=== PATIENT | male | born 1975 | race Caucasian/White ===

== ENCOUNTER 2017-10-25 13:56 | Inpatient (IN) | payer OTHER ==
[~2017-10-25] VITALS: Ht 188 cm; Wt 85.0 kg
[~2017-10-25 13:56] MED LIST: ACTICIN5% TP; CATAFLAM50 MG PO; CLINDAMYCIN HC150 MG PO; DICYCLOMINE HCL20 MG PO; HYDROXYZINE PAM50 MG PO; KEFLEX500 MG PO; MOTRIN800 MG PO; ONDANSETRON HYDR4 M1 PO; PREDNISONE20 MG PO; SINEMET 25-100M1 TAB PO; SUBOXONE 8 MG-21 TAB PO; ZITHROMAX Z PA250 MG PO
[2017-10-25 15:00] VITALS: BP 110/78
[2017-10-25 15:32] LABS: BASO % 0.4 % (0.0-1.0); EOS # 0.1 10*3/uL (0.0-0.4); EOS % 0.9 % (1.0-4.0); HEMATOCRIT 40.2 % (42.0-52.0); HEMOGLOBIN 13.7 g/dl (14.0-18.0); LYMPH # 2.1 10*3/uL (1.3-4.4); LYMPH % 26.4 % (27.0-41.0); MEAN CELL VOLUME 89.1 fl (80.0-94.0); MEAN CORPUSCULAR HGB 30.4 pg (27.0-31.0); MEAN CORPUSCULAR HGB CONC 34.1 g/dl (33.0-37.0); MEAN PLATELET VOLUME 11.8 fl (9.6-12.3); MONO # 0.5 10*3/uL (0.1-1.0); MONO % 6.8 % (3.0-9.0); NEUT # 5.2 10*3/uL (2.3-7.9); NEUT % 65.2 % (47.0-73.0); PLATELET COUNT AUTOMATED 153 10*3/uL (130-400); RED BLOOD COUNT 4.51 10*6/uL (4.50-5.90); RED CELL DISTRI WIDTH 13.2 % (0-14.5); WHITE BLOOD COUNT 7.9 10*3/uL (4.8-10.8)
[2017-10-25 15:47] LABS: ALBUMIN 4.1 gm/dl (3.1-4.5); ALKALINE PHOSPHATASE 58 U/L (45-117); BUN 12 mg/dl (7-24); CHLORIDE 105 mmol/L (98-107); CREATININE 1.07 mg/dL (0.70-1.30); POTASSIUM 4.3 mmol/L (3.5-5.1); SGOT/AST 7 IU/L (3-35); SGPT/ALT 17 U/L (12-78); SODIUM 139 mmol/L (136-145); TOTAL PROTEIN 7.9 gm/dL (6.4-8.2)
[2017-10-25 15:48] LABS: ETHYL ALCOHOL < 3.0 mg/dl (<3)
[2017-10-25 16:00] VITALS: BP 110/78; BP 139/106
[2017-10-25 17:03] LABS: BILIRUBIN NEGATIVE (NEGATIVE); BLOOD 2+ (NEGATIVE); CLARITY CLEAR (CLEAR); COLOR YELLOW (YELLOW); GLUCOSE NEGATIVE (NEGATIVE); KETONE NEGATIVE (NEGATIVE); LEUKO ESTERASE NEGATIVE (NEGATIVE); NITRITE NEGATIVE (NEGATIVE); PH 5.5 (5.0-9.0); UROBILINOGEN 0.2 E.U./dl (0.2-1.0)
[2017-10-25 17:11] LABS: BACTERIA TRACE; WBC 0-2 wbc/hpf (0-5)
[2017-10-25 17:12] LABS: EPITHELIAL CELLS 0-2
[2017-10-25 17:18] LABS: URINE AMPHETAMINES < 1000 (1000ng/ml); URINE BARBITURATES < 200 (200ng/ml); URINE BENZODIAZEPINES < 200 (200ng/ml); URINE CANNABINOIDS (THC) < 50 (50ng/ml); URINE COCAINE > 300 (300ng/ml); URINE METHADONE < 300 (300ng/ml); URINE OPIATES > 300 (300ng/ml)
[2017-10-25 17:20] LABS: URINE PHENCYCLIDINE < 25 (25ng/ml)
[2017-10-25 20:00] VITALS: BP 132/80
[2017-10-26] VITALS: BP 132/75
[2017-10-26 08:00] VITALS: BP 110/74
[2017-10-26 12:00] VITALS: BP 105/58
[2017-10-26 16:00] VITALS: BP 102/61
[2017-10-26 20:00] VITALS: BP 106/61
[2017-10-27] VITALS: BP 105/72
[2017-10-27 08:00] VITALS: BP 104/60
[2017-10-27 16:00] VITALS: BP 105/65
[2017-10-27 20:00] VITALS: BP 115/68
[2017-10-28] VITALS: BP 128/63
[2017-10-28 06:37] LABS: BASO % 0.6 % (0.0-1.0); EOS # 0.1 10*3/uL (0.0-0.4); EOS % 1.9 % (1.0-4.0); HEMATOCRIT 37.9 % (42.0-52.0); HEMOGLOBIN 12.6 g/dl (14.0-18.0); LYMPH % 40.7 % (27.0-41.0); MEAN CELL VOLUME 91.5 fl (80.0-94.0); MEAN CORPUSCULAR HGB 30.4 pg (27.0-31.0); MEAN CORPUSCULAR HGB CONC 33.2 g/dl (33.0-37.0); MONO # 0.5 10*3/uL (0.1-1.0); MONO % 9.6 % (3.0-9.0); NEUT # 2.3 10*3/uL (2.3-7.9); PLATELET COUNT AUTOMATED 118 10*3/uL (130-400); RED BLOOD COUNT 4.14 10*6/uL (4.50-5.90); RED CELL DISTRI WIDTH 13.3 % (0-14.5); WHITE BLOOD COUNT 4.8 10*3/uL (4.8-10.8)
[2017-10-28 06:39] LABS: CREATININE 1.01 mg/dL (0.70-1.30)
[2017-10-28 08:00] VITALS: BP 120/73; BP 130/70
[2017-10-28] MEDS ORDERED: ATARAX,VISTARIL50 MG PO (12:06)
[2017-10-28] MEDS ORDERED: METHOCARBAMOL750 M1 PO (12:06)
== END 2017-10-28 12:52 | disposition home or self-care (01) | DRG 897 ==
LOC: 5E 13:56
PROVIDERS: Internal Medicine
DX: F11.23 Opioid dependence with withdrawal (principal); D64.9 Anemia, unspecified; F12.10 Cannabis abuse, uncomplicated; F14.10 Cocaine abuse, uncomplicated; F15.10 Other stimulant abuse, uncomplicated; D72.818 Other decreased white blood cell count; D72.810 Lymphocytopenia; Z86.19 Personal history of other infectious and parasitic diseases; Z81.1 Family history of alcohol abuse and dependence; Z72.89 Other problems related to lifestyle; Z72.0 Tobacco use; Z82.49 Family history of ischemic heart disease and other diseases of the circulatory system; Z82.61 Family history of arthritis; Z82.3 Family history of stroke; R10.31 Right lower quadrant pain

== ENCOUNTER 2018-11-04 23:41 | Emergency (ER) | payer OTHER ==
[~2018-11-04] VITALS: Ht 177.8 cm; Wt 81.6 kg
--- NOTE | ~2018-11-04 | EKG ---
[place], [place] ELECTROCARDIOGRAM REPORT NAME: ROE MARQUEZ UNIT #: [id number] ROOM: DOCTOR: EPIPHANY DRAFT REPORT BIRTHDATE: [birth year] [facility] Test Date: 2018-11-04 Test Time: 23:45:36 Pat Name: ROE MARQUEZ Department: Room: Gender: M Food Demonstrator: : 1975 Requested By: SCOTT SNYDER Order Number: [id number] Reading MD: Aidan Horn MD Measurements Intervals [place] Rate: 90 P: 63 IL: 150 QRS: 28 QRSD: 108 T: 41 QT: 371 QTc: 454 Interpretive Statements Sinus rhythm RSR' in V1 or V2, right VCD or RVH ST elev, probable normal early repol pattern Electronically Signed On 11-06-2018 7:11:03 PST by Aidan Horn MD CM:EKGRPT:ELECTROCARDIOGRAM REPORT [id number] SCOTT GATICA DRAFT REPORT SCOTT SNYDER DO
[~2018-11-04 23:41] MED LIST changes: +ATARAX,VISTARIL50 MG PO; +METHOCARBAMOL750 M1 PO
[2018-11-05 00:12] LABS: BASO % 0.4 % (0.0-1.0); EOS # 0.1 10*3/uL (0.0-0.4); EOS % 1.2 % (1.0-4.0); HEMATOCRIT 39.9 % (42.0-52.0); HEMOGLOBIN 13.7 g/dl (14.0-18.0); LYMPH # 0.9 10*3/uL (1.3-4.4); MEAN CELL VOLUME 88.9 fl (80.0-94.0); MEAN CORPUSCULAR HGB 30.5 pg (27.0-31.0); MEAN CORPUSCULAR HGB CONC 34.3 g/dl (33.0-37.0); MEAN PLATELET VOLUME 12.3 fl (9.6-12.3); MONO # 0.8 10*3/uL (0.1-1.0); MONO % 10.6 % (3.0-9.0); NEUT # 5.9 10*3/uL (2.3-7.9); NEUT % 76.4 % (47.0-73.0); PLATELET COUNT AUTOMATED 148 10*3/uL (130-400); RED BLOOD COUNT 4.49 10*6/uL (4.50-5.90); RED CELL DISTRI WIDTH 13.7 % (0-14.5); WHITE BLOOD COUNT 7.7 10*3/uL (4.8-10.8)
[2018-11-05 00:22] LABS: INTERNATIONAL NORM RATIO 0.9 (2.0-3.5)
[2018-11-05 00:27] LABS: ALKALINE PHOSPHATASE 71 U/L (45-117); BUN 26 mg/dl (7-24); CHLORIDE 106 mmol/L (98-107); CREATININE 1.32 mg/dL (0.70-1.30); LIPASE 32 U/L (73-393); POTASSIUM 3.8 mmol/L (3.5-5.1); SGOT/AST 45 IU/L (3-35); SGPT/ALT 28 U/L (12-78); SODIUM 138 mmol/L (136-145); TOTAL PROTEIN 8.2 gm/dL (6.4-8.2)
[2018-11-05 00:31] LABS: TROPONIN I < 0.015 ng/ml (<0.045)
[2018-11-05 00:55] LABS: BILIRUBIN NEGATIVE (NEGATIVE); BLOOD 3+ (NEGATIVE); CLARITY CLEAR (CLEAR); COLOR YELLOW (YELLOW); GLUCOSE NEGATIVE (NEGATIVE); KETONE 1+ (NEGATIVE); LEUKO ESTERASE NEGATIVE (NEGATIVE); NITRITE NEGATIVE (NEGATIVE); PH 5.5 (5.0-9.0); UROBILINOGEN 0.2 E.U./dl (0.2-1.0)
[2018-11-05 01:06] LABS: URINE AMPHETAMINES > 1000 (1000ng/ml); URINE BARBITURATES < 200 (200ng/ml); URINE BENZODIAZEPINES < 200 (200ng/ml); URINE CANNABINOIDS (THC) < 50 (50ng/ml); URINE COCAINE < 300 (300ng/ml); URINE METHADONE < 300 (300ng/ml); URINE OPIATES < 300 (300ng/ml)
[2018-11-05 01:09] LABS: RBC 21-30 rbc/hpf (0-2)
[2018-11-05 01:10] LABS: URINE PHENCYCLIDINE < 25 (25ng/ml)
== END 2018-11-05 07:00 | disposition home or self-care (01) ==
LOC: ED 23:41
PROVIDERS: Emergency Medicine
DX: R10.31 Right lower quadrant pain (principal); M54.2 Cervicalgia; R68.2 Dry mouth, unspecified; F14.10 Cocaine abuse, uncomplicated; F12.10 Cannabis abuse, uncomplicated; F11.10 Opioid abuse, uncomplicated; F15.10 Other stimulant abuse, uncomplicated; F17.200 Nicotine dependence, unspecified, uncomplicated

== ENCOUNTER 2019-02-08 07:49 | Inpatient (IN) | payer OTHER ==
[~2019-02-08] VITALS: Ht 187.9 cm; Wt 77.3 kg
--- NOTE | ~2019-02-08 | EKG ---
[place], [place] ELECTROCARDIOGRAM REPORT NAME: ROE MARQUEZ UNIT #: [id number] ROOM: 416 DOCTOR: NIYA DRAFT REPORT BIRTHDATE: [birth year] [facility] Test Date: 2019-02-08 Test Time: 08:30:58 Pat Name: ROE MARQUEZ Department: Room: 416 Gender: M Nephrologist: Erica Garvey : 1975 Requested By: ANTONIO SIMPSON Order Number: [id number] Reading MD: Jeffery Lazo MD Measurements Intervals [place] Rate: 51 P: 63 LA: 161 QRS: 37 QRSD: 110 T: 40 QT: 446 QTc: 411 Interpretive Statements Sinus rhythm RSR' in V1 or V2, right VCD or RVH Left ventricular hypertrophy Compared to ECG 11/04/2018 23:45:36 Left ventricular hypertrophy now present ST (T wave) deviation no longer present Electronically Signed On 02-09-2019 10:12:55 PDT by Jeffery Lazo MD CM:EKGRPT:ELECTROCARDIOGRAM REPORT [id number] ANTONIO GATICA DRAFT REPORT ANTONIO SIMPSON DO
--- NOTE | ~2019-02-08 | EKG ---
[place], [place] ELECTROCARDIOGRAM REPORT NAME: ROE MARQUEZ UNIT #: [id number] ROOM: 416 DOCTOR: NIYA DRAFT REPORT BIRTHDATE: [birth year] [facility] Test Date: 2019-02-08 Test Time: 19:02:56 Pat Name: ROE MARQUEZ Department: Room: 416 Gender: M Glass Maker: Leslie Medina : 1975 Requested By: DUSTIN FUENTES Order Number: [id number] Reading MD: Jeffery Lazo MD Measurements Intervals [place] Rate: 63 P: 27 MN: 151 QRS: 31 QRSD: 100 T: 18 QT: 416 QTc: 426 Interpretive Statements Sinus rhythm RSR' in V1 or V2, right VCD or RVH Left ventricular hypertrophy ST elevation, consider anterolateral injury Baseline wander in lead(s) V2 Compared to ECG 11/04/2018 23:45:36 Left ventricular hypertrophy now present Myocardial infarct finding now present ST (T wave) deviation still present Electronically Signed On 02-09-2019 10:13:36 PDT by Jeffery Lazo MD CM:EKGRPT:ELECTROCARDIOGRAM REPORT [id number] DUSTIN GATICA DRAFT REPORT DUSTIN FUENTES DO
[2019-02-08 08:00] VITALS: BP 149/98
[2019-02-08 08:43] LABS: BASO % 0.4 % (0.0-1.0); EOS # 0.1 10*3/uL (0.0-0.4); EOS % 1.8 % (1.0-4.0); HEMATOCRIT 37.8 % (42.0-52.0); HEMOGLOBIN 12.8 g/dl (14.0-18.0); LYMPH # 1.4 10*3/uL (1.3-4.4); LYMPH % 26.2 % (27.0-41.0); MEAN CELL VOLUME 90.6 fl (80.0-94.0); MEAN CORPUSCULAR HGB 30.7 pg (27.0-31.0); MEAN CORPUSCULAR HGB CONC 33.9 g/dl (33.0-37.0); MEAN PLATELET VOLUME 11.9 fl (9.6-12.3); MONO # 0.5 10*3/uL (0.1-1.0); MONO % 9.6 % (3.0-9.0); NEUT # 3.4 10*3/uL (2.3-7.9); NEUT % 61.6 % (47.0-73.0); PLATELET COUNT AUTOMATED 130 10*3/uL (130-400); RED BLOOD COUNT 4.17 10*6/uL (4.50-5.90); RED CELL DISTRI WIDTH 13.3 % (0-14.5); WHITE BLOOD COUNT 5.4 10*3/uL (4.8-10.8)
[2019-02-08 08:54] LABS: ACT PARTIAL THROMBO TIME 23.7 SECONDS (20.8-31.5)
[2019-02-08 08:59] LABS: ALBUMIN 3.7 gm/dl (3.1-4.5); ALKALINE PHOSPHATASE 53 U/L (45-117); BUN 15 mg/dl (7-24); CHLORIDE 106 mmol/L (98-107); CREATININE 0.94 mg/dL (0.70-1.30); LIPASE 38 U/L (73-393); POTASSIUM 3.8 mmol/L (3.5-5.1); SGOT/AST 12 IU/L (3-35); SGPT/ALT 23 U/L (12-78); SODIUM 139 mmol/L (136-145); TOTAL PROTEIN 7.3 gm/dL (6.4-8.2)
[2019-02-08 09:00] LABS: ETHYL ALCOHOL < 3.0 mg/dl (<3); TROPONIN I < 0.015 ng/ml (<0.045)
[2019-02-08 09:01] VITALS: BP 144/82
--- NOTE | 2019-02-08 09:03 | NUR ---
PT RETURN FROM X-RAY AND STATES HE CANNOT VOID AT THIS TIME. BLU KERNS RN.
--- NOTE | 2019-02-08 10:37 | NUR ---
PT SLEEPING AROUSES EASILY. MOANING IN PAIN, WHEN ASKED WHAT WAS WRONG HE STATES IM FUING CRAMPING THATS WHAT. PT IS UNABLE TO VOID AT THIS TIME. BLU KERNS RN.
[2019-02-08 10:38] VITALS: BP 136/70
--- NOTE | 2019-02-08 13:41 | NUR ---
PT SLEEPING AT THIS TIME RESP EASY AND REGULAR. CART IN LOW POSITION AND SIDE RAILS UP X 2 CALL LIGHT IN REACH. BLU KERNS RN.
[2019-02-08 14:46] VITALS: BP 117/68
--- NOTE | 2019-02-08 14:46 | NUR ---
PT STATES AT THIS TIME HE STILL CANNOT VOID. PT WAS ENCOURAGED TO VOID BLU KERNS RN.
--- NOTE | 2019-02-08 16:00 | NUR ---
PT SLEEPING AROUSES WITH STIMULATION AND THE PATIENT IS ENCOURAGED TO GIVE A URINE SPEC. PT IS UPSET AND STATES CLOSETHE FUING DOOR AND I'LL GIVE YOU A URINE. I EXPLAINED TO THE PATIENT HE DID NOT HAVE TO USE THAT KIND OF LANGUAGE THE PATIENT AGAIN TOLD ME TO CLOSE THE DAMN DOOR. BLU KERNS RN.
[2019-02-08 17:14] LABS: BILIRUBIN NEGATIVE (NEGATIVE); BLOOD 3+ (NEGATIVE); CLARITY CLEAR (CLEAR); COLOR YELLOW (YELLOW); GLUCOSE NEGATIVE (NEGATIVE); KETONE TRACE (NEGATIVE); LEUKO ESTERASE NEGATIVE (NEGATIVE); NITRITE NEGATIVE (NEGATIVE); UROBILINOGEN 0.2 E.U./dl (0.2-1.0)
[2019-02-08 17:23] LABS: URINE AMPHETAMINES > 1000 (1000ng/ml); URINE BARBITURATES < 200 (200ng/ml); URINE BENZODIAZEPINES < 200 (200ng/ml); URINE CANNABINOIDS (THC) < 50 (50ng/ml); URINE COCAINE < 300 (300ng/ml); URINE METHADONE < 300 (300ng/ml); URINE OPIATES < 300 (300ng/ml)
[2019-02-08 17:24] LABS: URINE PHENCYCLIDINE < 25 (25ng/ml)
[2019-02-08 17:34] LABS: BACTERIA TRACE; RBC TNTC rbc/hpf (0-2); WBC 0-2 wbc/hpf (0-5)
[2019-02-08 20:00] VITALS: BP 93/60
--- NOTE | 2019-02-08 20:25 | NUR ---
A 43, admitted to , under the services of GILBERTO Zaldivar DO with a diagnosis of CLOSED HEAD INJURY, SYNCOPE, AMPHETAMINE ABUSE. Chief complaint is FALL. Patient arrived via ambulance from ER. Monitor applied. Initial assessment completed. Vital signs taken and recorded. GILBERTO ZALDIVAR DO notified of admission to the unit. Orders received. See assessment for past medical history, medications and allergies. Patient and/or family oriented to unit. [facility]. Clothing/patient valuable form completed. EMILEE MORELOS
[2019-02-08] MEDS ORDERED: SUBOXONE 8 MG-1 EACH SL (22:26)
--- NOTE | 2019-02-08 23:01 | NUR ---
ASSUMED CARE OF PATIENT AT THIS TIME. PATIENT ASLEEP IN BED, EASILY AROUSABLE. SHIFT ASSESSMENT COMPLETE. PATIENT IS C/O MILD DISCOMFORT TO R POSTERIOR HEAD, BUT DENIES NEED FOR PRN TYLENOL. WILL MONITOR. CALL LIGHT LEFT IN REACH.
--- NOTE | 2019-02-08 23:10 | NUR ---
DR. MORRIS NOTIFIED THAT PT STATES HE TAKES [facility] HOME MED AND MED REC IS RECONCILIATED.
[2019-02-09] VITALS: BP 120/86
--- NOTE | 2019-02-09 02:21 | NUR ---
PATIENT ASLEEP IN BED, EASILY AROUSABLE. DENIES ANY NEW/WORSENING SYMPTOMS. WILL MONITOR. CALL LIGHT IN REACH. BED ALARM INTACT.
--- NOTE | 2019-02-09 07:25 | NUR ---
REPORT OBTAINED FROM MARINO-TANVIR. PATIENT IS RESTING IN BED, EYES CLOSED. NO DISTRESS NOTED, RESP ARE ERND ON ROOM AIR. BED IS LOCKED IN LOWEST POSITION, ALARM MAINTAINED. CALL LIGHT LEFT WITHIN REACH.
[2019-02-09 08:00] VITALS: BP 114/60
--- NOTE | 2019-02-09 08:00 | NUR ---
PATIENT HAS STEADY GAIT, VOICED NO COMPLAINTS, ASYMPTOMATIC. NOT CONSIDERED FALL RISK. BED ALARM D/C.
--- NOTE | 2019-02-09 09:00 | NUR ---
Auto Tune Up Mechanic in to talk to patient. Patient states lives at home with alone. There are few steps in the home. Physician: none Pharmacy: none Home health services: none Patient's level of ADLs: INDEPENDENT Patient has working utilities: all working DME: none Follow-up physician's appointment after d/c: will be made by hospitalist nurse director with doctor of patient's choice upon discharge Does patient want to access PORTAL?: non Discharge plan discussesd with patient, patient lives at home, states he will be going home when able and denies any home needs. JOSSELYN ALEXANDER
--- NOTE | 2019-02-09 10:12 | NUR ---
PATIENT MEDICATED WITH ZOFRAN AND TYLENOL FOR C/O BEING "LITTLE NAUSEATED, HEAD IS SORE". WILL MONITOR
--- NOTE | 2019-02-09 11:13 | NUR ---
PHYSICAL THERAPY PAtient reports he is 100 % (I) with all mobility and ADL's without difficulty. PAtient reports he has no PT or OT needs at this time. Will D/C PT orders as requested at this time. Thank you for this referral. Yari Souza,PT
[2019-02-09 12:00] VITALS: BP 123/77
--- NOTE | 2019-02-09 13:59 | NUR ---
NOTED PATIENT WAS OFF MONITOR, WENT TO ASSESS. NOTED THAT PATIENT HAD TOOK MONIOTR OFF AND HOSPITAL GOWN, AND LEFT. AND NURSING FUNERAL HOME DIRECTOR IMMEDIATELY NOTIFIED. STATED TO PLACE AMA.
== END 2019-02-09 13:59 | disposition left against medical advice (07) | DRG 914 ==
LOC: ED 07:49 → EDHOLD 18:22 → 4E 18:22 → EDHOLD 18:37 → 4E 18:53
PROVIDERS: Emergency Medicine; ADMIT Internal Medicine
DX: S09.90XA Unspecified injury of head, initial encounter (principal); R55 Syncope and collapse; F15.10 Other stimulant abuse, uncomplicated; R00.1 Bradycardia, unspecified; R73.9 Hyperglycemia, unspecified; E83.41 Hypermagnesemia; F17.210 Nicotine dependence, cigarettes, uncomplicated; Z86.14 Personal history of Methicillin resistant Staphylococcus aureus infection; Z82.49 Family history of ischemic heart disease and other diseases of the circulatory system; Z82.3 Family history of stroke; Z83.3 Family history of diabetes mellitus; Z81.1 Family history of alcohol abuse and dependence; Z82.61 Family history of arthritis; Z80.9 Family history of malignant neoplasm, unspecified; Z79.899 Other long term (current) drug therapy; Z53.21 Procedure and treatment not carried out due to patient leaving prior to being seen by health care provider; W18.39XA Other fall on same level, initial encounter; Y93.89 Activity, other specified; Y92.89 Other specified places as the place of occurrence of the external cause; Y99.8 Other external cause status

== ENCOUNTER 2019-11-16 10:34 | Emergency (ER) | payer SELFPAY ==
[~2019-11-16] VITALS: Ht 187.9 cm; Wt 83.9 kg
[~2019-11-16 10:34] MED LIST changes: +SUBOXONE 8 MG-1 EACH SL
[2019-11-16] MEDS ORDERED: CEPHALEXIN500 M1 PO (10:46)
== END 2019-11-16 10:48 | disposition home or self-care (01) ==
LOC: ED 10:34
DX: L03.113 Cellulitis of right upper limb (principal); L02.511 Cutaneous abscess of right hand; F17.200 Nicotine dependence, unspecified, uncomplicated; Z79.899 Other long term (current) drug therapy

== ENCOUNTER 2019-11-18 17:59 | Inpatient (IN) | payer SELFPAY ==
[~2019-11-18] VITALS: Ht 187.9 cm; Wt 75.1 kg
[~2019-11-18 17:59] MED LIST changes: +CEPHALEXIN500 M1 PO
[2019-11-18 18:16] VITALS: BP 111/78
[2019-11-18 19:52] LABS: BASO # 0.1 10*3/uL (0.0-0.1); BASO % 0.5 % (0.0-1.0); EOS # 0.1 10*3/uL (0.0-0.4); EOS % 0.5 % (1.0-4.0); HEMATOCRIT 38.2 % (42.0-52.0); HEMOGLOBIN 12.5 g/dl (14.0-18.0); LYMPH # 1.1 10*3/uL (1.3-4.4); LYMPH % 11.9 % (27.0-41.0); MEAN CELL VOLUME 93.6 fl (80.0-94.0); MEAN CORPUSCULAR HGB 30.6 pg (27.0-31.0); MEAN CORPUSCULAR HGB CONC 32.7 g/dl (33.0-37.0); MEAN PLATELET VOLUME 11.9 fl (9.6-12.3); MONO # 0.9 10*3/uL (0.1-1.0); MONO % 10.1 % (3.0-9.0); NEUT # 7.1 10*3/uL (2.3-7.9); NEUT % 76.8 % (47.0-73.0); PLATELET COUNT AUTOMATED 236 10*3/uL (130-400); RED BLOOD COUNT 4.08 10*6/uL (4.50-5.90); RED CELL DISTRI WIDTH 12.5 % (0-14.5); WHITE BLOOD COUNT 9.2 10*3/uL (4.8-10.8)
[2019-11-18 20:03] LABS: ACT PARTIAL THROMBO TIME 29.3 SECONDS (20.0-32.1); INTERNATIONAL NORM RATIO 0.9 (2.0-3.5)
--- NOTE | 2019-11-18 20:10 | NUR ---
PT PROMPTED TWICE FOR URINE SPECIMEN.URINAL PROVIDED.PT STATES "I WENT PEE BEFORE I CAME IN".
[2019-11-18 20:11] LABS: ALBUMIN 3.2 gm/dl (3.1-4.5); BUN 13 mg/dl (7-24); CHLORIDE 106 mmol/L (98-107); CREATININE 0.98 mg/dL (0.70-1.30); LIPASE 34 U/L (73-393); SGOT/AST 6 IU/L (3-35); SGPT/ALT 21 U/L (12-78); SODIUM 138 mmol/L (136-145); TOTAL PROTEIN 7.8 gm/dL (6.4-8.2)
[2019-11-18 20:12] LABS: ALKALINE PHOSPHATASE 70 U/L (45-117)
[2019-11-18 20:16] LABS: TROPONIN I < 0.015 ng/ml (<0.045)
--- NOTE | 2019-11-18 20:24 | NUR ---
WOUND CULTURE COLLECTED FROM FINGER OF RT HAND,LABELED AND SENT TO LAB.
--- NOTE | 2019-11-18 21:26 | NUR ---
URINE SPECIMEN COLLECTED,LABELED AND SENT TO LAB.
[2019-11-18 21:53] LABS: BLOOD 1+ (NEGATIVE); CLARITY SL CLOUDY (CLEAR); COLOR YELLOW (YELLOW); SPECIFIC GRAVITY 1.025 (1.005-1.030)
[2019-11-18 21:54] LABS: BILIRUBIN NEGATIVE (NEGATIVE); GLUCOSE NEGATIVE (NEGATIVE); KETONE NEGATIVE (NEGATIVE); LEUKO ESTERASE NEGATIVE (NEGATIVE); NITRITE NEGATIVE (NEGATIVE); UROBILINOGEN 0.2 E.U./dl (0.2-1.0)
[2019-11-18 21:55] LABS: EPITHELIAL CELLS 0-2; MUCOUS 1+
--- NOTE | 2019-11-18 22:37 | NUR ---
INFUSION OF ZOSYN INITIATED PER EMAR.
--- NOTE | 2019-11-18 22:41 | NUR ---
PHOTO TAKEN OF PT 3RD DIGIT OF RIGHT HAND CELLULITIS.
[2019-11-18 22:44] VITALS: BP 125/85
--- NOTE | 2019-11-18 22:44 | NUR ---
PT REQUEST TYLENOL FOR PAIN.
--- NOTE | 2019-11-18 23:08 | NUR ---
INFUSION OF ZOSYN COMPLETED.
--- NOTE | 2019-11-18 23:08 | NUR ---
PT PROVIDED DRINK OF GINGERALE AND BOXED [employer] LUNCH.
--- NOTE | 2019-11-18 23:13 | NUR ---
INFUSION OF VANCOMYCIN INITIATED.
[2019-11-19] VITALS: BP 129/83
--- NOTE | 2019-11-19 00:08 | NUR ---
TETANUS ADMINISTERED IN RADHA PER EMAR.
--- NOTE | 2019-11-19 00:29 | NUR ---
Time: 24 A 44 year old male admitted to under services of AVA CLARK DO. Pt. arrived via wheel chair from ER. Chief complaint: insect bite. AMA CAPUTO
[2019-11-19 00:52] VITALS: BP 133/91
[2019-11-19 06:05] LABS: BASO # 0.1 10*3/uL (0.0-0.1); EOS # 0.1 10*3/uL (0.0-0.4); EOS % 1.4 % (1.0-4.0); HEMATOCRIT 33.8 % (42.0-52.0); HEMOGLOBIN 11.1 g/dl (14.0-18.0); LYMPH # 1.5 10*3/uL (1.3-4.4); LYMPH % 19.7 % (27.0-41.0); MEAN CELL VOLUME 94.7 fl (80.0-94.0); MEAN CORPUSCULAR HGB 31.1 pg (27.0-31.0); MEAN CORPUSCULAR HGB CONC 32.8 g/dl (33.0-37.0); MEAN PLATELET VOLUME 12.2 fl (9.6-12.3); MONO # 0.9 10*3/uL (0.1-1.0); MONO % 11.8 % (3.0-9.0); NEUT # 4.8 10*3/uL (2.3-7.9); NEUT % 65.8 % (47.0-73.0); PLATELET COUNT AUTOMATED 215 10*3/uL (130-400); RED BLOOD COUNT 3.57 10*6/uL (4.50-5.90); RED CELL DISTRI WIDTH 12.8 % (0-14.5); WHITE BLOOD COUNT 7.4 10*3/uL (4.8-10.8)
[2019-11-19 06:22] LABS: BUN 13 mg/dl (7-24); CHLORIDE 108 mmol/L (98-107); CHOLESTEROL 112 mg/dL (<200); CREATININE 1.02 mg/dL (0.70-1.30); PHOSPHOROUS 2.7 mg/dL (2.5-4.9); POTASSIUM 3.9 mmol/L (3.5-5.1); SODIUM 139 mmol/L (136-145)
[2019-11-19 06:31] LABS: FREE T4 0.99 ng/dl (0.76-1.46); HDL CHOLESTEROL 52 mg/dl (40-60); LDL CHOLESTEROL 40 mg/dL (9-159); TRIGLYCERIDES 102 mg/dl (<150); VLDL CHOLESTEROL 20 mg/dL (6-40)
[2019-11-19 08:00] VITALS: BP 118/82
--- NOTE | 2019-11-19 08:00 | NUR ---
PT RESTING IN BED. RESP-EASY AND REGULAR. C/O RIGHT HAND PAIN, RATES PAIN 9 ON PAIN SCALE 0-10. MEDICATED WITH MORPHINE IV PER PRN ORDER, SEE EMAR. CALL LIGHT IN REACH. SEE SHIFT ASSESSMENT.
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
--- NOTE | 2019-11-19 09:00 | NUR ---
PT STATES PAIN MEDICATION HELPED SOME. CALL LIGHT IN REACH.
--- NOTE | 2019-11-19 09:39 | NUR ---
PT C/O RIGHT HAND PAIN, RATES PAIN 8 OR 9 ON PAIN SCALE 0-10. MEDICATED WITH NORCO PO PER PRN ORDER, SEE EMAR. CALL LIGHT IN REACH.
--- NOTE | 2019-11-19 10:30 | NUR ---
Mine Wirer in to talk to patient. Patient states lives at a friend's house but will be homeless soon. There are 0 steps in the home. Physician: none but would like to see resident clinic Pharmacy: [facility] Home health services: none Patient's level of ADLs: INDEPENDENT Patient has working utilities: yes DME: none Follow-up physician's appointment after d/c: will be made by the hospitalist nurse director upon discharge Does patient want to access PORTAL?: no Discharge plan discussed with patient. He is currently living with a friend but can only stay there until 11/24 then he will be homeless. He states he has no other friends or family he can stay with. Discussed homeless shelters and he is aware of the one in [facility]. Will have social services assistant speak to patient. He would like to have any medications filled here at the hospital pharmacy. He is independent in his ADLs and ambulation. JO BAXTER
--- NOTE | 2019-11-19 10:30 | NUR ---
PT RESTING IN BED, STATES PAIN MEDICATION HELPS A LITTLE. CALL LIGHT IN REACH.
--- NOTE | 2019-11-19 11:00 | NUR ---
CALLED DR. LANGE MADE AWARE OF CONSULT. NO NEW ORDERS.
--- NOTE | 2019-11-19 11:23 | NUR ---
Dr. Amor notified of wound care recommendations.
[2019-11-19 12:00] VITALS: BP 111/67
--- NOTE | 2019-11-19 12:20 | NUR ---
PRODUCT HANDLER spoke with the patient about being homeless. Patient stated that he is currently staying with a friend but the friend is moving on 11/24/2019. Patient stated that he has previously been in a [place] [facility]. Patient stated that he had questions about re-enstating his food stamps PRODUCT HANDLER explained he would have to contact [facility]. PRODUCT HANDLER provided the patient with a Homeless Fdc List and Local Food Pantry Lists. PRODUCT HANDLER also contacted [facility] to inquire about their Homeless Fdc, awaiting a return call from Mae Sood. PRODUCT HANDLER provied the patient with [facility] [employer] phone number as well. Weigh Tank Operator Sharon is aware. -DIEUDONNE Judge
--- NOTE | 2019-11-19 13:05 | NUR ---
PT RESTING IN BED. TOLERATING IV ANTIBIOTICS. C/O RIGHT HAND PAIN, RATES PAIN 8 ON PAIN SCALE. MEDICATED WITH MORPHINE IV PER PRN ORDER, SEE EMAR. CALL LIGHT IN REACH.
--- NOTE | 2019-11-19 13:37 | NUR ---
CALLED DR. MORRIS MADE AWARE URINE DRUG SCREEN WAS NEVER SENT. MADE AWARE HE HAS ALREADY RECEIVED PAIN MEDICATION. OK TO CANCEL.
--- NOTE | 2019-11-19 13:40 | NUR ---
DIEUDONNE received call back from [facility], she stated there are no beds available at this time but to have the patient call in for a screening. [employer] provided the patient with [phone]. Patient stated he would give her a call. -DIEUDONNE Judge
--- NOTE | 2019-11-19 14:58 | NUR ---
PT C/O RIGHT HAND PAIN, RATES PAIN 8 ON PAIN SCALE. MEDICATED WITH NORCO PO PER PRN ORDER, SEE EMAR. CALL LIGHT IN REACH.
--- NOTE | 2019-11-19 15:57 | NUR ---
PATIENT REPORTS MINIMAL EFFECT FROM PAIN MEDICATION GIVEM X 1 HOUR AGO RATES PAIN 6/10
[2019-11-19 16:00] VITALS: BP 111/72
[2019-11-20] VITALS (8 sets, daily range): BP systolic 117–142; BP diastolic 67–93
--- NOTE | 2019-11-20 00:22 | NUR ---
PT MEDICATED WITH NORCO FOR C/O PAIN RATED 10/10. WILL MONITOR FOR EFFECTIVENESS.
--- NOTE | 2019-11-20 01:00 | NUR ---
PT STATING THAT HE IS STILL EXPERIENCING PAIN AT THIS TIME. PRN NORCO INEFFECTIVE.
--- NOTE | 2019-11-20 01:13 | NUR ---
PT MEDICATED WITH PRN MORPHINE FOR C/O PAIN RATED A 10/10. WILL MONITOR FOR EFFECTIVENESS.
--- NOTE | 2019-11-20 01:45 | NUR ---
PT ASLEEP IN BED AT THIS TIME. PRN MORPHINE EFFECTIVE.
--- NOTE | 2019-11-20 05:16 | NUR ---
IN TO SEE PT AT THIS TIME TO ADMINISTER SCHEDULED ANTIBIOTICS. PT C/O PAIN, PRN MORPHINE ADMINISTERED PER ORDER. WILL MONITOR FOR EFFECTIVENESS.
--- NOTE | 2019-11-20 05:22 | NUR ---
PT MEDICATED WITH PRN MORPHINE FOR C/O PAIN RATED A 9/10. WILL MONITOR FOR EFFECTIVENESS.
--- NOTE | 2019-11-20 09:54 | NUR ---
Medicated with morphine iv per prn order for complaints of pain to rt hand. States pain is 10/10. Anny Mike in rounding on pt was well. Discussed plan of care. Pt states that surgeon was in and plan is for OR today.
--- NOTE | 2019-11-20 10:18 | NUR ---
Nutritional Support Services Note: Pt is NPO at this time sec. to surgery later today for I and D of finger sec. to cellulitis/insect bite. Pt states he will be homeless after 11/24/19. He states he eats ok most of the time. Ht.6'2 Wt.166#. BMI 21 normal weight. Stressed importance of eating protein and adequate kcal to promote healing. Regular diet as orderd is appropriate at this time. Will follow as needed. Gladys Bragg Rdn Ld
--- NOTE | 2019-11-20 11:00 | NUR ---
logging worker following patient for assistance with homeless shelters on discharge.
--- NOTE | 2019-11-20 14:43 | NUR ---
Medicated with norco per prn order for complaints of pain to rt hand.
--- NOTE | 2019-11-20 15:30 | NUR ---
States that medication was somewhat effective for pain.
--- NOTE | 2019-11-20 16:22 | NUR ---
Medicated with morphine iv per prn order for complaints of pain to rt hand.
--- NOTE | 2019-11-20 17:15 | NUR ---
States that pain medication was somewhat effective.
--- NOTE | 2019-11-20 21:37 | NUR ---
PATIENT C/O NAUSEA. IV ZOFRAN ADMINISTERED PRESCRIBED. WILL MONITOR FOR EFFECTIVENESS. WILL MONITOR FOR EFFECTIVENESS.
--- NOTE | 2019-11-20 21:44 | NUR ---
PATIENT REQUESTING PAIN MEDICATION FOR RIGHT HAND PAIN RATED 9/10 ON 0/10 SCALE.NORCO ADMINISTERED PRESCRIBED. WILL MONITOR FOR EFFECTIVENESS.
--- NOTE | 2019-11-20 22:37 | NUR ---
PATIENT STATES THAT ZOFRAN WAS EFFECTIVE FOR NAUSEA. WILL MONITOR.
--- NOTE | 2019-11-20 22:44 | NUR ---
PATIENT STATES THAT NORCO WAS EFFECTIVE FOR PAION, RATED 5/10 ON 0/10 SCALE AT THIS TIME. WILL MONITOR.
[2019-11-21] VITALS: BP 137/74
--- NOTE | 2019-11-21 04:33 | NUR ---
PATIENT REQUESTING PAIN MEDICATION FOR RIGHT HAND PAIN RATED 9/10 ON 0/10 SCALE. NORCO ADMINISTERED PRESCRIBED. WILL MONITOR FOR EFFECTIVENESS.
[2019-11-21 08:00] VITALS: BP 128/88
[2019-11-21 12:00] VITALS: BP 130/84
[2019-11-21 16:00] VITALS: BP 124/82
--- NOTE | 2019-11-21 19:57 | NUR ---
24 HR chart check completed.
[2019-11-21 21:25] VITALS: BP 136/86
--- NOTE | 2019-11-21 21:26 | NUR ---
PATIENT REQUESTING PAIN MEDICATION FOR RIGHT HAND PAIN RATED 9/10 ON 0/10 SCALE. NORCO ADMINISTERED PRESCRIBED. WILL MONITOR FOR EFFECTIVENESS.
--- NOTE | 2019-11-21 22:26 | NUR ---
PATIENT STATES THAT NORCO WAS A LITTLE EFECTIVE FOR PAIN, WILL MONITOR.
--- NOTE | 2019-11-21 22:57 | NUR ---
PATIENT REQUESTING PAIN MEDICATION FOR RIGHT HAND PAIN RATED 8/10 ON 0/10 SCALE. MORPHINE ADMINISTERED PRESCRIBED. WILL MONITOR FOR EFFECTIVENESS.
--- NOTE | 2019-11-21 23:57 | NUR ---
PATIENT RESTING WITH EYES CLOSED. RESPIRATIONS EASY AND UNLABORED. CALL LIGHT IN REACH. WILL MONITOR.
[2019-11-22] VITALS: BP 133/87
--- NOTE | 2019-11-22 02:00 | NUR ---
PATIENT RESTING COMFORTABLY WITH EYES CLOSED. RESPIRATIONS EASY AND UNLABORED. CALL LIGHT IN REACH. WILL MONITOR.
--- NOTE | 2019-11-22 04:00 | NUR ---
PATIENT RESTING WITH EYES CLOSED. RESPIRATIONS EASY AND UNLABORED. CALL LIGHT IN REACH. WILL MONITOR FOR EFFECTIVENESS.
--- NOTE | 2019-11-22 06:35 | NUR ---
PATIENT REQUESTING PAIN MEDICATION FOR RIGHT HAND PAIN RATED 8/10 ON 0/10 SCALE. NORCO ADMINISTERED PRESCRIBED. WILL MONITOR FOR EFFECTIVENESS.
[2019-11-22 07:20] LABS: BUN 12 mg/dl (7-24); CREATININE 0.88 mg/dL (0.70-1.30)
[2019-11-22 08:00] VITALS: BP 128/84
--- NOTE | 2019-11-22 12:47 | NUR ---
PATIENT MEDICATED WITH MORPHINE FOR COMPLAINTS OF RIGHT HAND PAIN. RATES 07/07. WILL CHECK EFFECTIVENESS.
--- NOTE | 2019-11-22 13:15 | NUR ---
[place] effective. Patient satisfied.
--- NOTE | 2019-11-22 14:30 | NUR ---
Igo given per patiet request for c/o acute surgical pain in right hand. Pain is rated 8/10, will monitor.
--- NOTE | 2019-11-22 15:25 | NUR ---
[place] effective. Patient rates pain 6/10.
[2019-11-22 16:00] VITALS: BP 133/86
--- NOTE | 2019-11-22 17:35 | NUR ---
Morphine given per patient request for pain in right hand. Will monitor.
--- NOTE | 2019-11-22 18:15 | NUR ---
"Patient states morphine helps but it doesn't last long."
--- NOTE | 2019-11-22 18:46 | NUR ---
[place] given per patient request for c/o surgical pain in right hand. Pain is rated 8/10. Will monitor.
[2019-11-22 20:00] VITALS: BP 138/84
--- NOTE | 2019-11-22 20:28 | NUR ---
PATIENT IS RESTING IN BED WITH EASY AND REGULAR RESPERS ON ROOM AIR. ASSESSMENT IS COMPLETE PATIENT C/O PAIN TO RIGHT HAND RATING AN 8/10. BED IS LOW, LOCKED, AND CALL LIGHT IS WITHIN REACH. IV started right forearm with #22 angiocath after 1 attempts. The IV site was prepped with Chloraprep. Heparin lock attached. Sterile dressing applied. Patient tolerated precedure well. Procedure performed according to [facility] policy & procedure. SEE SHIFT ASSESSMENT.
--- NOTE | 2019-11-22 21:08 | NUR ---
PRN MORPHINE GIVEN AT 2100 FOR C/O PAIN TO RIGHT HAND RATING AN 8/10. CALL LIGHT IS WITHIN REACH, WILL MONITOR EFFECT.
--- NOTE | 2019-11-23 | NUR ---
PATIENT SLEEPING. RESPERS EASY AND REGULAR. CALL LIGHT IS WITHIN REACH.
--- NOTE | 2019-11-23 03:43 | NUR ---
CHART CHECK COMPLETE.
--- NOTE | 2019-11-23 03:49 | NUR ---
PRN MORPHINE AND NORCO GIVEN AT 0203 FOR C/O RIGHT HAND PAIN RATING AN 8/10. PATIENT TOLERATED WELL. MEDICATIONS EFFECTIVE PER PATIENT.
[2019-11-23 08:00] VITALS: BP 119/74
--- NOTE | 2019-11-23 08:34 | NUR ---
PT REQUESTED AND WAS MEDICATED WITH NORCO FOR C/O RIGHT HAND PAIN. RESP EASY AND NONLABORED ON RA. DRSG DRY AND INTACT. CALL LIGHT IN REACH. WILL MONITOR
--- NOTE | 2019-11-23 09:00 | NUR ---
Washer Blanket in to see patient. Discussed discharge planning. He remains unsure of where he is going to upon discharge. He states it depends on when he is discharged. He is unable to pay for any antibiotic medications. Will have prescriptions filled here at the hospital. When medically stable he will be discharged.
--- NOTE | 2019-11-23 09:35 | NUR ---
MEDICATION EFFECTIVE PER PT.
--- NOTE | 2019-11-23 14:06 | NUR ---
DR LANGE IN TO SEE PT. DRSG REMOVED AND REAPPLIED PER ORDERS. PT TOLERATED WELL. CALL LIGHT IN REACH. WILL MONITOR
[2019-11-23 16:00] VITALS: BP 138/90
--- NOTE | 2019-11-23 16:15 | NUR ---
DR WISE IN TO SEE PT. DRSG REMOVED AND REAPPLIED PER ORDERS. PT TOLERATED WELL. CALL LIGHT IN REACH. WILL MONITOR ISOLATION PRECAUTIONS MAINTAINED.
--- NOTE | 2019-11-23 21:23 | NUR ---
PATIENT MEDICATED WITH PRN NORCO FOR C/O RIGHT HAND PAIN RATED 8/10
--- NOTE | 2019-11-23 22:30 | NUR ---
EARLIER NORCO EFFECTIVE PER PATIENT.
[2019-11-24] VITALS: BP 131/84
--- NOTE | 2019-11-24 00:49 | NUR ---
PATIENT SLEEPING. NO S/S OF DISTRESS NOTED. CALL LIGHT IN REACH
--- NOTE | 2019-11-24 05:07 | NUR ---
MEDICATED WITH PRN NORCO ORDERD FOR C/O RIGHT HAND PAIN RATED 8/10
[2019-11-24 07:33] LABS: BASO % 0.8 % (0.0-1.0); EOS # 0.2 10*3/uL (0.0-0.4); EOS % 3.2 % (1.0-4.0); HEMATOCRIT 34.3 % (42.0-52.0); HEMOGLOBIN 11.4 g/dl (14.0-18.0); LYMPH # 1.5 10*3/uL (1.3-4.4); LYMPH % 29.5 % (27.0-41.0); MEAN CELL VOLUME 90.7 fl (80.0-94.0); MEAN CORPUSCULAR HGB 30.2 pg (27.0-31.0); MEAN CORPUSCULAR HGB CONC 33.2 g/dl (33.0-37.0); MEAN PLATELET VOLUME 10.9 fl (9.6-12.3); MONO # 0.5 10*3/uL (0.1-1.0); MONO % 9.2 % (3.0-9.0); NEUT # 2.8 10*3/uL (2.3-7.9); NEUT % 56.7 % (47.0-73.0); PLATELET COUNT AUTOMATED 255 10*3/uL (130-400); RED BLOOD COUNT 3.78 10*6/uL (4.50-5.90); RED CELL DISTRI WIDTH 12.3 % (0-14.5)
[2019-11-24 08:00] VITALS: BP 136/83
[2019-11-24] MEDS ORDERED: HYDROCODONE-AC1 EAC1 PO (09:18)
[2019-11-24] MEDS ORDERED: VIBRAMYCIN100 MG PO (09:19)
--- NOTE | 2019-11-24 10:30 | NUR ---
Stud Driver in to see patient. Discussed where he is going to go on discharge from the hospital. He states he is going to stay with a friend in [place]. He is just waiting to hear back from him. Explained his prescription will need to picked up in our pharmacy at no cost as the prescription has been completed as CBI. Anny Mike notified.
--- NOTE | 2019-11-24 12:07 | NUR ---
Nutritional Support Services Note: Follow up done on pt. Eating 100% of regular diet. Continue to maintain adequate nutrition. NEIL Siddiqui dietitic advisory intern
--- NOTE | 2019-11-24 13:30 | NUR ---
Discharge instructions reviewed with patient/family. Patient receptive and verbalizes understanding. Follow-up care arranged. Written instructions given to patient/family. WOUND PHOTOS TAKEN. HEPLOCK DISCONTINUED. CARLOS GIL
== END 2019-11-24 13:25 | disposition home or self-care (01) | DRG 603 ==
LOC: ED 17:59 → EDHOLD 21:55 → 5E 21:55
PROVIDERS: Internal Medicine; Nurse Practitioner Family; ADMIT Internal Medicine
PROC: 0HBFXZZ Excision of Right Hand Skin, External Approach (ICD-10-PCS; principal; 2019-11-20)
DX: L03.011 Cellulitis of right finger (principal); E44.1 Mild protein-calorie malnutrition; L02.511 Cutaneous abscess of right hand; I96 Gangrene, not elsewhere classified; D64.9 Anemia, unspecified; R00.0 Tachycardia, unspecified; R73.9 Hyperglycemia, unspecified; R31.1 Benign essential microscopic hematuria; F15.10 Other stimulant abuse, uncomplicated; B95.62 Methicillin resistant Staphylococcus aureus infection as the cause of diseases classified elsewhere; E55.9 Vitamin D deficiency, unspecified; I45.10 Unspecified right bundle-branch block; I51.7 Cardiomegaly; B19.20 Unspecified viral hepatitis C without hepatic coma; F17.210 Nicotine dependence, cigarettes, uncomplicated; R70.0 Elevated erythrocyte sedimentation rate; Z71.6 Tobacco abuse counseling; Z82.3 Family history of stroke; Z83.3 Family history of diabetes mellitus; Z82.61 Family history of arthritis; Z80.8 Family history of malignant neoplasm of other organs or systems; Z81.1 Family history of alcohol abuse and dependence; Z82.49 Family history of ischemic heart disease and other diseases of the circulatory system; Z84.89 Family history of other specified conditions; Z86.14 Personal history of Methicillin resistant Staphylococcus aureus infection; Z68.21 Body mass index [BMI] 21.0-21.9, adult

== ENCOUNTER 2020-02-02 15:32 | Emergency (ER) | payer SELFPAY ==
[~2020-02-02] VITALS: Ht 187.9 cm; Wt 83.9 kg
[~2020-02-02 15:32] MED LIST changes: +HYDROCODONE-AC1 EAC1 PO; +VIBRAMYCIN100 MG PO
[2020-02-02 16:23] LABS: BASO % 0.2 % (0.0-1.0); EOS % 0.3 % (1.0-4.0); HEMATOCRIT 40.2 % (42.0-52.0); HEMOGLOBIN 13.5 g/dl (14.0-18.0); LYMPH # 1.5 10*3/uL (1.3-4.4); MEAN CELL VOLUME 87.6 fl (80.0-94.0); MEAN CORPUSCULAR HGB 29.4 pg (27.0-31.0); MEAN CORPUSCULAR HGB CONC 33.6 g/dl (33.0-37.0); MONO # 0.9 10*3/uL (0.1-1.0); NEUT # 8.9 10*3/uL (2.3-7.9); NEUT % 78.2 % (47.0-73.0); PLATELET COUNT AUTOMATED 204 10*3/uL (130-400); RED BLOOD COUNT 4.59 10*6/uL (4.50-5.90); RED CELL DISTRI WIDTH 13.7 % (0-14.5); WHITE BLOOD COUNT 11.3 10*3/uL (4.8-10.8)
[2020-02-02 16:35] LABS: ALBUMIN 3.3 gm/dl (3.1-4.5); ALKALINE PHOSPHATASE 66 U/L (45-117); BUN 11 mg/dl (7-24); CHLORIDE 105 mmol/L (98-107); CREATININE 1.03 mg/dL (0.70-1.30); POTASSIUM 3.3 mmol/L (3.5-5.1); SGOT/AST 11 IU/L (3-35); SGPT/ALT 18 U/L (12-78); SODIUM 136 mmol/L (136-145); TOTAL PROTEIN 7.5 gm/dL (6.4-8.2)
[2020-02-02] MEDS ORDERED: CLINDAMYCIN HC300 MG PO ×2 (16:39→16:55)
== END 2020-02-02 16:51 | disposition home or self-care (01) ==
LOC: ED 15:32
PROVIDERS: Nurse Practitioner Family
DX: L02.413 Cutaneous abscess of right upper limb (principal); F17.200 Nicotine dependence, unspecified, uncomplicated; Z86.14 Personal history of Methicillin resistant Staphylococcus aureus infection; Z79.2 Long term (current) use of antibiotics

== ENCOUNTER 2020-03-14 13:09 | Emergency (ER) | payer SELFPAY ==
[~2020-03-14] VITALS: Ht 187.9 cm; Wt 74.8 kg
[~2020-03-14 13:09] MED LIST changes: +CLINDAMYCIN HC300 MG PO
[2020-03-14 14:17] LABS: HEMATOCRIT 39.8 % (42.0-52.0); MEAN CELL VOLUME 85.8 fl (80.0-94.0); MEAN CORPUSCULAR HGB 29.1 pg (27.0-31.0); MEAN CORPUSCULAR HGB CONC 33.9 g/dl (33.0-37.0); MEAN PLATELET VOLUME 13.6 fl (9.6-12.3); PLATELET COUNT AUTOMATED 82 10*3/uL (130-400); RED BLOOD COUNT 4.64 10*6/uL (4.50-5.90); RED CELL DISTRI WIDTH 14.6 % (0-14.5); WHITE BLOOD COUNT 7.8 10*3/uL (4.8-10.8)
[2020-03-14 14:36] LABS: ALBUMIN 2.8 gm/dl (3.1-4.5); ALKALINE PHOSPHATASE 226 U/L (45-117); ATYPICAL LYMPHS 5 % (0-0); BUN 12 mg/dl (7-24); BURR CELLS FEW; CHLORIDE 105 mmol/L (98-107); CPK 16 U/L (39-308); CREATININE 0.96 mg/dL (0.70-1.30); PLATELET SUFFICIENCY LOW (NORMAL); POTASSIUM 3.7 mmol/L (3.5-5.1); SODIUM 137 mmol/L (136-145); TOTAL CELLS COUNTED 100 #CELLS; TOTAL PROTEIN 6.7 gm/dL (6.4-8.2)
[2020-03-14 14:39] LABS: SGOT/AST 1123 IU/L (3-35); SGPT/ALT 3215 U/L (12-78); TROPONIN I < 0.015 ng/ml (<0.045)
[2020-03-14 15:59] LABS: ACT PARTIAL THROMBO TIME 30.9 SECONDS (20.0-32.1); INTERNATIONAL NORM RATIO 1.2 (2.0-3.5)
== END 2020-03-14 17:09 | disposition left against medical advice (07) ==
LOC: ED 13:09
PROVIDERS: Emergency Medicine
DX: B17.9 Acute viral hepatitis, unspecified (principal); R53.83 Other fatigue; R17 Unspecified jaundice; R53.1 Weakness; Z79.899 Other long term (current) drug therapy

== ENCOUNTER 2021-03-05 23:33 | Emergency (ER) | payer OTHER | END 2021-03-06 05:50 | LOC: ED 23:33 | DX: S39.012A Strain of muscle, fascia and tendon of lower back, initial encounter (principal); F17.200 Nicotine dependence, unspecified, uncomplicated; Z79.899 Other long term (current) drug therapy; X58.XXXA Exposure to other specified factors, initial encounter; Y93.89 Activity, other specified; Y92.89 Other specified places as the place of occurrence of the external cause; Y99.8 Other external cause status ==

== ENCOUNTER 2021-05-07 01:14 | Inpatient (IN) | payer OTHER ==
[~2021-05-07] VITALS: Ht 188 cm; Wt 83.9 kg
[2021-05-07 01:43] VITALS: BP 147/90
[2021-05-07 02:40] LABS: BASO % 0.3 % (0.0-1.0); EOS # 0.1 10*3/uL (0.0-0.4); EOS % 0.6 % (1.0-4.0); HEMATOCRIT 35.5 % (42.0-52.0); LYMPH # 1.4 10*3/uL (1.3-4.4); LYMPH % 13.4 % (27.0-41.0); MEAN CELL VOLUME 88.5 fl (80.0-94.0); MEAN CORPUSCULAR HGB 29.4 pg (27.0-31.0); MEAN CORPUSCULAR HGB CONC 33.2 g/dl (33.0-37.0); MEAN PLATELET VOLUME 11.7 fl (9.6-12.3); MONO % 9.5 % (3.0-9.0); NEUT # 8.1 10*3/uL (2.3-7.9); NEUT % 75.8 % (47.0-73.0); PLATELET COUNT AUTOMATED 188 10*3/uL (130-400); RED BLOOD COUNT 4.01 10*6/uL (4.50-5.90); RED CELL DISTRI WIDTH 13.7 % (0-14.5); WHITE BLOOD COUNT 10.7 10*3/uL (4.8-10.8)
[2021-05-07 02:56] LABS: ALBUMIN 3.5 gm/dl (3.1-4.5); ALKALINE PHOSPHATASE 65 U/L (45-117); BUN 12 mg/dl (7-24); CHLORIDE 101 mmol/L (98-107); CREATININE 0.99 mg/dL (0.70-1.30); SGOT/AST 132 IU/L (3-35); SGPT/ALT 82 U/L (12-78); SODIUM 133 mmol/L (136-145); TOTAL PROTEIN 7.8 gm/dL (6.4-8.2)
[2021-05-07 03:07] LABS: CPK 3511 U/L (39-308)
[2021-05-07 06:35] VITALS: BP 130/70
[2021-05-07 08:30] VITALS: BP 138/81
[2021-05-07 16:00] VITALS: BP 128/77
== END 2021-05-07 17:20 | disposition left against medical advice (07) | DRG 344 ==
LOC: ED 01:14 → EDHOLD 06:12 → 4E 07:12
PROVIDERS: Emergency Medicine; ADMIT Family Medicine; ATTEND Family Medicine
DX: M60.052 Infective myositis, left thigh (principal); L03.116 Cellulitis of left lower limb; M79.602 Pain in left arm; M62.82 Rhabdomyolysis; M60.9 Myositis, unspecified; F17.200 Nicotine dependence, unspecified, uncomplicated; E87.1 Hypo-osmolality and hyponatremia; B19.20 Unspecified viral hepatitis C without hepatic coma; E87.6 Hypokalemia; R74.01 Elevation of levels of liver transaminase levels; Z53.29 Procedure and treatment not carried out because of patient's decision for other reasons; D64.9 Anemia, unspecified; Z79.1 Long term (current) use of non-steroidal anti-inflammatories (NSAID); Z79.899 Other long term (current) drug therapy

== ENCOUNTER 2022-03-14 19:28 | Inpatient (IN) | payer OTHER ==
[~2022-03-14] VITALS: Ht 177.8 cm; Wt 68.0 kg
[2022-03-14 19:34] VITALS: BP 149/83
[2022-03-14 20:00] LABS: BASO % 0.4 % (0.0-1.0); EOS # 0.1 10*3/uL (0.0-0.4); EOS % 0.9 % (1.0-4.0); LYMPH % 18.6 % (27.0-41.0); MEAN CELL VOLUME 84.4 fl (80.0-94.0); MEAN CORPUSCULAR HGB 28.3 pg (27.0-31.0); MEAN CORPUSCULAR HGB CONC 33.5 g/dl (33.0-37.0); MEAN PLATELET VOLUME 10.7 fl (9.6-12.3); MONO # 0.4 10*3/uL (0.1-1.0); MONO % 6.8 % (3.0-9.0); NEUT # 4.1 10*3/uL (2.3-7.9); NEUT % 73.1 % (47.0-73.0); PLATELET COUNT AUTOMATED 191 10*3/uL (130-400); RED BLOOD COUNT 4.03 10*6/uL (4.50-5.90); RED CELL DISTRI WIDTH 13.7 % (0-14.5); WHITE BLOOD COUNT 5.6 10*3/uL (4.8-10.8)
[2022-03-14 20:17] LABS: ALKALINE PHOSPHATASE 72 U/L (45-117); BUN 9 mg/dl (7-24); CHLORIDE 107 mmol/L (98-107); CREATININE 0.79 mg/dL (0.70-1.30); POTASSIUM 3.3 mmol/L (3.5-5.1); SGOT/AST 10 IU/L (3-35); SGPT/ALT 15 U/L (12-78); SODIUM 138 mmol/L (136-145); TOTAL PROTEIN 7.4 gm/dL (6.4-8.2)
[2022-03-15 00:16] VITALS: BP 140/80
[2022-03-15 04:16] VITALS: BP 138/68
[2022-03-15 05:01] LABS: BUN 7 mg/dl (7-24); CHLORIDE 111 mmol/L (98-107); POTASSIUM 3.5 mmol/L (3.5-5.1); SGPT/ALT 15 U/L (12-78); SODIUM 139 mmol/L (136-145)
[2022-03-15 05:03] LABS: ALKALINE PHOSPHATASE 67 U/L (45-117); CHOLESTEROL 102 mg/dL (<200); CREATININE 0.74 mg/dL (0.70-1.30); SGOT/AST 11 IU/L (3-35); TOTAL PROTEIN 6.9 gm/dL (6.4-8.2); TRIGLYCERIDES 77 mg/dl (<150)
[2022-03-15 05:10] LABS: LDL CHOLESTEROL 52 mg/dL (9-159); THYROID STIM HORMONE (HS) 0.378 uIU/ml (0.358-4.75)
[2022-03-15 06:16] LABS: BASO % 0.4 % (0.0-1.0); EOS # 0.1 10*3/uL (0.0-0.4); HEMATOCRIT 32.2 % (42.0-52.0); LYMPH # 1.2 10*3/uL (1.3-4.4); LYMPH % 24.8 % (27.0-41.0); MEAN CELL VOLUME 85.2 fl (80.0-94.0); MEAN CORPUSCULAR HGB 29.4 pg (27.0-31.0); MEAN CORPUSCULAR HGB CONC 34.5 g/dl (33.0-37.0); MONO # 0.6 10*3/uL (0.1-1.0); NEUT # 3.1 10*3/uL (2.3-7.9); NEUT % 62.6 % (47.0-73.0); PLATELET COUNT AUTOMATED 203 10*3/uL (130-400); RED BLOOD COUNT 3.78 10*6/uL (4.50-5.90); RED CELL DISTRI WIDTH 13.6 % (0-14.5)
[2022-03-15 06:20] LABS: ACT PARTIAL THROMBO TIME 30.1 SECONDS (20.0-32.1)
== END 2022-03-15 12:36 | disposition left against medical advice (07) | DRG 720 ==
LOC: ED 19:28 → EDHOLD 03-15 00:08 → 5E 03-15 00:08
PROVIDERS: Internal Medicine; Student in an Organized Health Care Education/Training Program; ADMIT Internal Medicine; ATTEND Internal Medicine
DX: A41.9 Sepsis, unspecified organism (principal); F19.10 Other psychoactive substance abuse, uncomplicated; B19.20 Unspecified viral hepatitis C without hepatic coma; L02.11 Cutaneous abscess of neck; E87.6 Hypokalemia; F17.210 Nicotine dependence, cigarettes, uncomplicated; R73.9 Hyperglycemia, unspecified; E87.8 Other disorders of electrolyte and fluid balance, not elsewhere classified; D64.9 Anemia, unspecified; E83.39 Other disorders of phosphorus metabolism; E43 Unspecified severe protein-calorie malnutrition; F41.9 Anxiety disorder, unspecified; L03.221 Cellulitis of neck; Z53.29 Procedure and treatment not carried out because of patient's decision for other reasons

== ENCOUNTER 2022-05-31 20:36 | Emergency (ER) | payer OTHER ==
[~2022-05-31] VITALS: Ht 175.2 cm; Wt 64.4 kg
== END 2022-05-31 21:12 | disposition left against medical advice (07) ==
LOC: ED 20:36
DX: Z53.21 Procedure and treatment not carried out due to patient leaving prior to being seen by health care provider (principal)

== ENCOUNTER 2022-06-03 16:56 | Emergency (ER) | payer OTHER | END 2022-06-03 18:55 | disposition left against medical advice (07) | LOC: ED 16:56 | DX: Z00.8 Encounter for other general examination (principal); Z53.21 Procedure and treatment not carried out due to patient leaving prior to being seen by health care provider ==

== ENCOUNTER 2024-02-13 13:40 | Emergency (ER) | payer MEDICAID ==
[~2024-02-13] VITALS: Ht 187.9 cm; Wt 88.5 kg
[2024-02-13] MEDS ORDERED: SODIUM CHLORIDE 0.9% 1,000 ML IV ONE (13:50)
[2024-02-13] MEDS ORDERED: Ketorolac Tromethamine 30 MG/ML VIAL IV ONE (13:55)
[2024-02-13 14:39] LABS: BASO % 0.2 % (0.0-1.0); EOS # 0.1 10*3/uL (0.0-0.4); EOS % 0.7 % (1.0-4.0); HEMATOCRIT 43.5 % (42.0-52.0); LYMPH % 11.7 % (27.0-41.0); MEAN CELL VOLUME 87.5 fl (80.0-94.0); MEAN CORPUSCULAR HGB CONC 33.1 g/dl (33.0-37.0); MEAN PLATELET VOLUME 11.8 fl (9.6-12.3); MONO % 10.8 % (3.0-9.0); NEUT # 6.8 10*3/uL (2.3-7.9); NEUT % 76.3 % (47.0-73.0); PLATELET COUNT AUTOMATED 185 10*3/uL (130-400); RED BLOOD COUNT 4.97 10*6/uL (4.50-5.90); RED CELL DISTRI WIDTH 13.8 % (0-14.5); WHITE BLOOD COUNT 8.9 10*3/uL (4.8-10.8)
[2024-02-13 15:09] LABS: ALKALINE PHOSPHATASE 77 U/L (46-116); BUN 14 mg/dl (9-23); CHLORIDE 106 mmol/L (98-107); LIPASE 37 U/L (12-53); POTASSIUM 4.2 mmol/L (3.4-5.1); SGPT/ALT 12 U/L (5-49)
[2024-02-13] MEDS ORDERED: FLOMAX0.4 MG PO (16:03)
[2024-02-13] MEDS ORDERED: HYDROCODONE-AC1 EAC1 PO (16:03)
[2024-02-13] MEDS ORDERED: CIPRO500 MG PO (16:03)
== END 2024-02-13 16:15 | disposition home or self-care (01) ==
LOC: ED 13:40
PROVIDERS: Physician Assistant Medical
DX: N20.9 Urinary calculus, unspecified (principal); K59.00 Constipation, unspecified; Z98.890 Other specified postprocedural states; F17.200 Nicotine dependence, unspecified, uncomplicated; F19.10 Other psychoactive substance abuse, uncomplicated; F14.10 Cocaine abuse, uncomplicated

== ENCOUNTER 2024-11-23 09:30 | Emergency (ER) | payer MEDICAID ==
[~2024-11-23] VITALS: Ht 187.9 cm; Wt 74.8 kg
[~2024-11-23 09:30] MED LIST changes: +CIPRO500 MG PO; +FLOMAX0.4 MG PO
[2024-11-23] MEDS ORDERED: Doxycycline Hyclate 100 MG CAP PO ONE (09:45)
[2024-11-23] MEDS ORDERED: VIBRAMYCIN100 MG PO (11:21)
== END 2024-11-23 12:09 ==
LOC: ED 09:30
DX: L03.90 Cellulitis, unspecified (principal); R06.02 Shortness of breath; Z04.6 Encounter for general psychiatric examination, requested by authority; F17.200 Nicotine dependence, unspecified, uncomplicated; F19.10 Other psychoactive substance abuse, uncomplicated; Z98.890 Other specified postprocedural states

== ENCOUNTER 2025-09-14 01:23 | Emergency (ER) | payer MEDICAID ==
[~2025-09-14] VITALS: Ht 187.9 cm; Wt 88.5 kg
== END 2025-09-14 06:32 | disposition home or self-care (01) ==
LOC: ED 01:23
DX: M54.50 Low back pain, unspecified (principal); Z86.19 Personal history of other infectious and parasitic diseases